=== PATIENT | female | born 1940 | race Caucasian/White ===

== ENCOUNTER 2020-04-25 16:28 | Inpatient (IN) ==
[2020-04-25 19:53] LABS: Basophils % 0.5 % (0.0-0.8); Eosinophils # 0.1 10*3/uL (0.0-0.87); Eosinophils % 0.8 % (0.00-10.9); Hematocrit 46.5 VOL% (35.7-47.0); Hemoglobin 15.1 GM/DL (12.0-16.0); Immature Granulocytes % 0.3 %; Immature Granulocytes Absolute 0.02 #; Lymphocytes # 1.4 10*3/uL (1.4-4.0); Lymphocytes % 23.5 % (21.3-54.2); Mean Corpuscular HGB Conc 32.5 GM/DL (32-36); Mean Corpuscular Volume 84.5 FL (87-102); Mean Platelet Volume 8.6 FL (9.6-12.0); Monocytes % 9.6 % (1.7-12.7); Neutrophils % 65.3 % (38.7-73.9); Platelet Count 369 T/CUMM (130-400); Red Cell Distribution Width 13.5 % (9.3-17.3)
[2020-04-25 20:17] LABS: Albumin 3.1 G/DL (3.4-5.0); Bilirubin,Total 0.4 MG/DL (0.2-1.0); Calcium 8.9 MG/DL (8.5-10.1); Osmolality,Calculated 285.1 MOS/KG (273-304); Total Protein 8.1 G/DL (6.4-8.3)
[2020-04-25 20:29] LABS: PT Patient Result 10.6 SECS (9.8-11.9)
[2020-04-25 20:31] LABS: Partial Thromboplastin Time < 20.0 SECS (23.9-33.8)
[2020-04-25 20:59] LABS: Bacteria,Urine Few /HPF (Few); Bilirubin,Urine Negative (Negative); Blood, Urine Small mg/dL (Negative); Glucose,Urine (UA) Negative (Negative); Ketones,Urine Negative (Negative); Nitrite,Urine Negative (Negative); Protein,Urine 30 MG/DL; RBC,Urine 16 /HPF (0-4); Urine Appearance CLOUDY (Clear); Urine Color Yellow (Yellow); Urine Specific Gravity 1.008 (1.001-1.035); Urine Urobilinogen < 2.0 EU/DL (0.2-1.0); WBC,Urine 84 /HPF (0-6)
[2020-04-25] MEDS ORDERED: cefTRIAXone 1,000 MG in SODIUM CHLORIDE 0.9% 100 ML IV STA (21:26)
[2020-04-25] MEDS ORDERED: DEXTROSE 50% 25 GM/50 ML VIAL IV PRN (22:44)
[2020-04-25] MEDS ORDERED: DOCUSATE SODIUM 100 MG CAPSULE PO PRN (22:44)
[2020-04-25] MEDS ORDERED: GLUCAGON 1 MG VIAL IM PRN (22:44)
[2020-04-25] MEDS ORDERED: ONDANSETRON 4 MG/2 ML VIAL IV PRN (22:44)
[2020-04-25] MEDS ORDERED: ACETAMINOPHEN 325 MG TABLET PO PRN (22:44)
[2020-04-25] MEDS ORDERED: BISACODYL 5 MG TABLET PO PRN (22:44)
[2020-04-26] MEDS: SODIUM CHLORIDE 0.9% 1,000 ML IV SCH ×5 (06:20→21:24)
[2020-04-26 06:27] LABS: Albumin 2.4 G/DL (3.4-5.0); Bilirubin,Total 1.3 MG/DL (0.2-1.0); Calcium 8.5 MG/DL (8.5-10.1); Osmolality,Calculated 288.7 MOS/KG (273-304); Thyroid Stimulating Hormone 2.69 uIU/ml (0.358-3.74); Total Protein 6.7 G/DL (6.4-8.3)
[2020-04-26] MEDS: cefTRIAXone 1,000 MG in SYRINGE 1 EACH IV SCH (08:30)
[2020-04-26] MEDS: ENOXAPARIN 40 MG/0.4 ML SYRINGE SUBCUT SCH (08:41)
[2020-04-26] MEDS: amLODIPine 5 MG TABLET PO SCH (08:41)
[2020-04-26] MEDS: POTASSIUM CHLORIDE 20 MEQ TABLET PO PRN ×4 (10:12→21:23)
[2020-04-27 05:43] LABS: Basophils % 0.8 % (0.0-0.8); Eosinophils # 0.2 10*3/uL (0.0-0.87); Eosinophils % 3.9 % (0.00-10.9); Hematocrit 35.8 VOL% (35.7-47.0); Hemoglobin 11.5 GM/DL (12.0-16.0); Immature Granulocytes % 0.4 %; Immature Granulocytes Absolute 0.02 #; Lymphocytes # 2.2 10*3/uL (1.4-4.0); Lymphocytes % 43.4 % (21.3-54.2); Mean Corpuscular HGB Conc 32.1 GM/DL (32-36); Mean Corpuscular Volume 86.3 FL (87-102); Mean Platelet Volume 9.5 FL (9.6-12.0); Neutrophils % 42.5 % (38.7-73.9); Platelet Count 291 T/CUMM (130-400); Red Blood Count 4.15 MC/CUMM (3.8-5.5); Red Cell Distribution Width 13.6 % (9.3-17.3); White Blood Count 5.1 T/CUMM (4-12)
[2020-04-27] MEDS: SODIUM CHLORIDE 0.9% 1,000 ML IV SCH ×3 (05:56→15:21)
[2020-04-27 06:33] LABS: Calcium 8.2 MG/DL (8.5-10.1); Osmolality,Calculated 284.8 MOS/KG (273-304)
[2020-04-27] MEDS: cefTRIAXone 1,000 MG in SYRINGE 1 EACH IV SCH (08:41)
[2020-04-27] MEDS: amLODIPine 5 MG TABLET PO SCH (08:41)
[2020-04-27] MEDS: ENOXAPARIN 40 MG/0.4 ML SYRINGE SUBCUT SCH (08:41)
[2020-04-27] MEDS ORDERED: ASPIRIN CHEW 81 MG TABLET PO ONE (14:58)
[2020-04-27] MEDS: ATORVASTATIN 40 MG TABLET PO SCH (22:43)
[2020-04-28] MEDS: SODIUM CHLORIDE 0.9% 1,000 ML IV SCH (02:12)
[2020-04-28 05:44] LABS: Basophils % 0.6 % (0.0-0.8); Eosinophils # 0.3 10*3/uL (0.0-0.87); Eosinophils % 5.7 % (0.00-10.9); Hematocrit 36.1 VOL% (35.7-47.0); Hemoglobin 11.6 GM/DL (12.0-16.0); Immature Granulocytes % 0.2 %; Immature Granulocytes Absolute 0.01 #; Lymphocytes # 2.4 10*3/uL (1.4-4.0); Lymphocytes % 47.4 % (21.3-54.2); Mean Corpuscular HGB Conc 32.1 GM/DL (32-36); Mean Corpuscular Volume 85.3 FL (87-102); Mean Platelet Volume 9.1 FL (9.6-12.0); Monocytes % 8.4 % (1.7-12.7); Neutrophils % 37.7 % (38.7-73.9); Platelet Count 316 T/CUMM (130-400); Red Blood Count 4.23 MC/CUMM (3.8-5.5); Red Cell Distribution Width 13.6 % (9.3-17.3); White Blood Count 5.1 T/CUMM (4-12)
[2020-04-28 06:02] LABS: Calcium 8.2 MG/DL (8.5-10.1); Osmolality,Calculated 286.6 MOS/KG (273-304)
[2020-04-28 06:11] LABS: Risk Ratio 4.25
[2020-04-28 06:11] LABS: Atypical Lymphocytes Few; Eosinophils 3 % (0-10); Hypochromasia 1+; Lymphocytes 50 % (20-55); Microcytosis Slight; Segmented Neutrophils 39 % (50-85); Total Cells Counted 100
[2020-04-28 06:12] LABS: Ovalocytes Slight; Platelet Estimate Normal
[2020-04-28] MEDS: ENOXAPARIN 40 MG/0.4 ML SYRINGE SUBCUT SCH (09:02)
[2020-04-28] MEDS: amLODIPine 5 MG TABLET PO SCH (09:02)
[2020-04-28] MEDS: ASPIRIN CHEW 81 MG TABLET PO SCH (09:02)
[2020-04-28] MEDS: cefTRIAXone 1,000 MG in SYRINGE 1 EACH IV SCH (11:21)
[2020-04-28] MEDS: ATORVASTATIN 40 MG TABLET PO SCH (21:21)
[2020-04-29 05:47] LABS: Basophils % 0.7 % (0.0-0.8); Eosinophils # 0.3 10*3/uL (0.0-0.87); Hematocrit 39.7 VOL% (35.7-47.0); Hemoglobin 12.8 GM/DL (12.0-16.0); Immature Granulocytes % 0.4 %; Immature Granulocytes Absolute 0.02 #; Lymphocytes # 2.2 10*3/uL (1.4-4.0); Lymphocytes % 39.4 % (21.3-54.2); Mean Corpuscular HGB Conc 32.2 GM/DL (32-36); Mean Platelet Volume 8.8 FL (9.6-12.0); Monocytes % 8.7 % (1.7-12.7); Neutrophils % 44.8 % (38.7-73.9); Platelet Count 352 T/CUMM (130-400); Red Blood Count 4.67 MC/CUMM (3.8-5.5); Red Cell Distribution Width 13.6 % (9.3-17.3); White Blood Count 5.5 T/CUMM (4-12)
[2020-04-29 06:11] LABS: Calcium 8.5 MG/DL (8.5-10.1); Osmolality,Calculated 283.8 MOS/KG (273-304)
[2020-04-29] MEDS: SODIUM CHLORIDE 0.9% 1,000 ML IV SCH ×3 (06:54→14:53)
[2020-04-29] MEDS: ENOXAPARIN 40 MG/0.4 ML SYRINGE SUBCUT SCH (09:19)
[2020-04-29] MEDS: ASPIRIN CHEW 81 MG TABLET PO SCH (09:19)
[2020-04-29] MEDS: amLODIPine 5 MG TABLET PO SCH (09:19)
[2020-04-29] MEDS: POTASSIUM CHLORIDE 20 MEQ TABLET PO PRN ×3 (16:01→22:53)
[2020-04-29] MEDS: ATORVASTATIN 40 MG TABLET PO SCH (20:28)
[2020-04-30] MEDS: POTASSIUM CHLORIDE 20 MEQ TABLET PO PRN (01:03)
[2020-04-30 05:15] LABS: Basophils % 0.6 % (0.0-0.8); Eosinophils # 0.4 10*3/uL (0.0-0.87); Eosinophils % 5.8 % (0.00-10.9); Hematocrit 39.5 VOL% (35.7-47.0); Hemoglobin 12.9 GM/DL (12.0-16.0); Immature Granulocytes % 0.2 %; Immature Granulocytes Absolute 0.01 #; Lymphocytes # 2.9 10*3/uL (1.4-4.0); Lymphocytes % 45.5 % (21.3-54.2); Mean Corpuscular HGB Conc 32.7 GM/DL (32-36); Mean Corpuscular Volume 84.8 FL (87-102); Mean Platelet Volume 9.8 FL (9.6-12.0); Neutrophils % 39.9 % (38.7-73.9); Platelet Count 295 T/CUMM (130-400); Red Blood Count 4.66 MC/CUMM (3.8-5.5); Red Cell Distribution Width 13.8 % (9.3-17.3); White Blood Count 6.4 T/CUMM (4-12)
[2020-04-30 05:41] LABS: Calcium 8.7 MG/DL (8.5-10.1)
[2020-04-30] MEDS: ASPIRIN CHEW 81 MG TABLET PO SCH (09:01)
[2020-04-30] MEDS: amLODIPine 5 MG TABLET PO SCH (09:01)
[2020-04-30] MEDS: ENOXAPARIN 40 MG/0.4 ML SYRINGE SUBCUT SCH (09:01)
[2020-04-30] MEDS: ATORVASTATIN 40 MG TABLET PO SCH (21:08)
[2020-05-01] MEDS: amLODIPine 5 MG TABLET PO SCH (08:47)
[2020-05-01] MEDS: ASPIRIN CHEW 81 MG TABLET PO SCH (08:47)
[2020-05-01] MEDS: ENOXAPARIN 40 MG/0.4 ML SYRINGE SUBCUT SCH (08:47)
[2020-05-01] MEDS ORDERED: TUBERCULIN SKIN TEST 0.1 ML SYRINGE INTRADERM ONE (09:26)
[2020-05-01 11:37] VITALS: BP 146/65
== END 2020-05-01 14:48 | disposition home health service (06) | DRG 65 ==
LOC: N.ED 16:28 → N.EDINP 22:44 → SUATTDRO 22:44 → INTOOBSV 22:44 → N.3E 23:27
PROVIDERS: ADMIT Internal Medicine; ATTEND Internal Medicine